=== PATIENT | male | born 1970 | race Caucasian/White ===

== ENCOUNTER 2017-08-16 09:13 | Emergency (ER) | payer OTHER ==
[2017-08-16 09:22] VITALS: BP 141/89; PULSE 84; RESP 16; TEMP 97.9; O2SAT 95
--- NOTE | 2017-08-16 09:34 | EDPHY ---
H & P Stated Complaint: cough, congestion, ST, madsen x 2 weeks Time Seen by Provider: 08/16/17 09:27 HPI/ROS: CHIEF COMPLAINT: Cough HISTORY OF PRESENT ILLNESS: The patient is a 46-year-old man who comes to the emergency department complaining of cough. He states that about 2 weeks ago he developed sinus infection and sore throat that have now improved but he states that has gone down into his chest. He has not had fevers. He is able to ambulate and exert himself without difficulty. His cough is not productive. He denies any history of pulmonary or cardiac disease. He denies chest pain. REVIEW OF SYSTEMS: Constitutional: See HPI EENTM: See HPI Respiratory: See HPI Cardiac: denies: chest pain, irregular heart rate, lightheadedness, palpitations Gastrointestinal/Abdominal: denies: abdominal pain, diarrhea, nausea, vomiting, blood streaked stools Genitourinary: denies: dysuria, frequency, hematuria, pain Musculoskeletal: denies: joint pain, muscle pain Skin: denies: lesions, rash, jaundice, bruising Neurological: denies: headache, numbness, paresthesia, tingling, dizziness, weakness Hematologic/Lymphatic: denies: blood clots, easy bleeding, easy bruising Immunologic/allergic: denies: HIV/AIDS, transplant EXAM: GENERAL: Well-appearing, well-nourished and in no acute distress. HEAD: Atraumatic, normocephalic. EYES: Pupils equal round and reactive to light, extraocular movements intact, sclera anicteric, conjunctiva are normal. ENT: TMs normal, nares patent, oropharynx clear without exudates. Moist mucous membranes. NECK: Normal range of motion, supple without lymphadenopathy or JVD. LUNGS: Breath sounds clear to auscultation bilaterally and equal. No wheezes rales or rhonchi. HEART: Regular rate and rhythm without murmurs, rubs or gallops. ABDOMEN: Soft, nontender, normoactive bowel sounds. No guarding, no rebound. No masses appreciated. BACK: No CVA tenderness, no spinal tenderness, step-offs or deformities EXTREMITIES: Normal range of motion, no pitting or edema. No clubbing or cyanosis. NEUROLOGICAL: Cranial nerves II through XII grossly intact. Normal speech, normal gait. 5/5 strength, normal movement in all extremities, normal sensation PSYCH: Normal mood, normal affect. SKIN: Warm, dry, normal turgor, no visible rashes or lesions. Source: Patient Exam Limitations: No limitations - Personal History Current Tetanus/Diphtheria Vaccine: Yes - Medical/Surgical History Hx Asthma: No Hx Chronic Respiratory Disease: No Hx Diabetes: No Hx Cardiac Disease: No Hx Renal Disease: No Hx Cirrhosis: No Hx HIV/AIDS: No Other PMH: good health except kidney stones - Family History Significant Family History: No pertinent family hx - Social History Smoking Status: Never smoked Alcohol Use: Sober Drug Use: None Constitutional: Initial Vital Signs Temperature (C) 36.6 C 08/16/17 09:19 Heart Rate 84 08/16/17 09:19 Respiratory Rate 16 08/16/17 09:19 Blood Pressure 141/89 H 08/16/17 09:19 O2 Sat (%) 95 08/16/17 09:19 O2 Delivery Mode Room Air Allergies/Adverse Reactions: No Known Allergies Allergy (Verified 08/16/17 09:19) Home Medications: Medication Instructions Recorded Azithromycin [Zithromax] 250 mg PO DAILY #6 tab 08/16/17 Medical Decision Making ED Course/Re-evaluation: The patient's exam is unremarkable. He is well appearing. I did offer to perform chest x-ray and rapid strep testing. He declines this and states that he thinks it seems redundant. I agreed considering his exam and vital signs. He states that he is primarily concerned because of the duration of this illness and is wondering if there is "light at the end of the tunnel ". We agreed because of the duration to start antibiotics although he understands they may not help if this is a viral illness. Differential Diagnosis: Partial list of the Differential diagnosis considered include but were not limited to; bronchitis, upper respiratory tract infection and although unlikely based on the history and physical exam, I also considered pneumonia, PE , coronary disease, CHF, COPD. I discussed these differential diagnoses and the plan with the patient as well as the usual and expected course. The patient understands that the diagnosis is provisional and that in medicine we are not always correct and that further workup is often warranted. Usual and customary warnings were given. All of the patient's questions were answered. The patient was instructed to return to the emergency department should the symptoms at all worsen or return, otherwise to followup with the physician as we discussed. Departure - Departure Disposition: Home, Routine, Self-Care Clinical Impression: Acute bronchitis Qualifiers: Bronchitis organism: unspecified organism Qualified Code(s): J20.9 - Acute bronchitis, unspecified Condition: Fair Instructions: Acute Bronchitis (ED) Referrals: NONE *PRIMARY CARE P,. [Primary Care Provider] - As per Instructions Prescriptions: Azithromycin [Zithromax] 250 mg PO DAILY #6 tab
== END 2017-08-16 09:39 | disposition home or self-care (01) ==
LOC: CED 09:13
DX: J20.9 Acute bronchitis, unspecified (principal)